=== PATIENT | female | born 1975 | race Caucasian/White ===

== ENCOUNTER 2017-01-20 09:59 | Emergency (ER) | payer OTHER ==
[~2017-01-20 09:59] MED LIST: AMOXIL500 MG PO; CIPRO500 MG PO; FLONASE120 SPRAY/ NAS; IBUPROFEN800 M1 PO; PERCOCET 325 MG1 TA2 PO; TESSALON PERLE100 MG PO
--- NOTE | 2017-01-20 11:43 | ED NECK/BACK PAIN COMPLAINT ---
History of Present Illness General Chief Complaint: Low Back Pain/Injury Stated Complaint: LOW BACK PAIN Source: patient Exam Limitations: no limitations Vital Signs & Intake/Output Vital Signs & Intake/Output Vital Signs Date Time Temp Pulse Resp B/P Pulse O2 O2 Flow FiO2 Ox Delivery Rate 01/20 1158 98.1 74 16 122/62 99 Room Air 01/20 1110 Room Air 01/20 1010 98.0 80 20 125/69 98 Room Air Allergies Uncoded Allergies: SEAFOOD (UNKNOWN 03/19/16) Reconcile Medications No Known Home Medications Triage Note: PT PRESENTS TO ER C/O OF PAIN TO COCCYX AREA. PT STATES SHE HAS RODS IN HER BACK DUE TO A ACCIDENT YEARS AGO. SHE SAID FRIDAY SHE WAS AT A BAR AND SAT ON A HARD SURFFACE AND THINKS THAT BOTHERED HER. PT STATES SINCE YESTERDAY HER TAILBONE HAS BEEN HURTING HER Triage Nurses Notes Reviewed? yes Onset: Gradual Duration: constant Timing: recent history Radiation: none Method of Injury: unknown : No Patient currently breastfeeds: No HPI: Patient is a 41-year-old female with past medical history of lumbar spine fusion who states on Friday 3 days ago patient was sitting at a bar stool for approximate 4 hours where she states at the time it was uncomfortable for her sacrum and tailbone region in which since she's been complaining of pain with certain positions while sitting. Patient states that she has no redness or swelling or skin irritation or discharge to the region. Denies any rectal pain. Denies any lumbar spine pain however does state that the pain is at the end of her coccyx regions. Denies any extremity weakness or paresthesia or pain. Patient has not taken any medications for symptoms. Past History Travel History Traveled to [place] past 21 day No Medical History Any Pertinent Medical History? see below for history Musculoskeletal: BACK INJURY 20 YEARS AGO Surgical History Surgical History: PATIENT STATED SURGERY FOR HER BACK AND RIGHT SHOULDER Psychosocial History What is your primary language Slovenian Tobacco Use: Quit >30 days ago Family History Hx Contributory? No Review of Systems Review of Systems Constitutional: Reports: no symptoms. Eyes: Reports: no symptoms. Ears, Nose, Throat, Mouth: Reports: no symptoms. Respiratory: Reports: no symptoms. Cardiovascular: Reports: no symptoms. Gastrointestinal/Abdominal: Reports: no symptoms. Musculoskeletal: Reports: see HPI, back pain. Skin: Reports: no symptoms. Neurological/Psychological: Reports: no symptoms. All Other Systems: Reviewed and Negative Physical Exam Physical Exam General Appearance: no apparent distress, alert, comfortable Neck: supple, full range of motion Comments: Well-developed well-nourished person in no acute distress HEENT: Normal EENT exam, Neck: Supple, no lymphadenopathy, normal range of motion without pain or tenderness Back: Lumbar spine-nontender full active range of motion normal inspection Coccyx sacral region normal inspection mild tenderness noted to coccyx region no swelling no ecchymosis no signs of trauma no erythema Abdomen: Soft, nontender nondistended, no appreciable organomegaly. Normal bowel sounds. No ascites Extremity: No edema, no calf tenderness to palpation, normal and equal pulses. Neuro: Alert oriented x3, motor sensory normal, Skin: No appreciable rash on exposed skin, skin is warm and dry. Psych: Mood and affect is normal, memory and judgment is normal. Progress Differential Diagnosis: AAA, carotid dissection, cauda equina syn, herniated disc, myofascial strain, pyelo/UTI, sciatica, spinal cord inj, thoracic outlet syn, T/L spine injury, ureterolithiasis Plan of Care: Due to history of present illness and exam findings patient is likely to have a coccyx contusion however no mechanism injury or traumatic event occurred in which no medical warranting of emergent x-rays for the patient is identified at this time. Patient has normal steady gait bilateral lower extremity's are neurovascularly intact. No signs or symptoms of hemorrhoids or abscess or cellulitis at this time or PILONIDAL cyst Departure Departure Disposition: HOME OR SELF CARE Condition: Stable Clinical Impression Primary Impression: Coccyx pain Referrals: PATIENT HAS NO PRIMARY CARE DR (PCP/Family) Additional Instructions: DISCUSSED BEGIN ICING THE AREA 20 MINUTES EVERY TWO HOURS BEGIN IBUPROFEN FOR PAIN IF NO BETTER IN ONE WEEK FOLLOW UP WITH YOUR DOCTOR IF SYMPTOMS WORSEN, RETURN TO THE ER. Departure Forms: Customer Survey General Discharge Information Prescriptions: Current Visit Scripts No Known Home Medications
[2017-01-20 11:58] VITALS: BP 122/62
== END 2017-01-20 11:59 ==
LOC: ERH 09:59
DX: M53.3 Sacrococcygeal disorders, not elsewhere classified (principal)

== ENCOUNTER 2017-01-23 21:19 | Emergency (ER) | payer OTHER ==
[~2017-01-23] VITALS: Ht 167.6 cm; Wt 99.8 kg
[2017-01-23 21:29] VITALS: BP 158/97
[2017-01-23] MEDS ORDERED: IBUPROFEN800 M1 PO (21:40)
--- NOTE | 2017-01-23 21:40 | ED THROAT/DENTAL COMPLAINT ---
History of Present Illness General Chief Complaint: Sore Throat, Dental Pain Stated Complaint: DENTAL PAIN Source: patient Exam Limitations: no limitations Vital Signs & Intake/Output Vital Signs & Intake/Output Vital Signs Date Time Temp Pulse Resp B/P Pulse O2 O2 Flow FiO2 Ox Delivery Rate 01/23 2129 97.7 74 18 158/97 99 Room Air Allergies Uncoded Allergies: SEAFOOD (UNKNOWN 03/19/16) Reconcile Medications Ibuprofen 800 MG TABLET 1 TAB PO TID pain Triage Note: PT TO ED C/O BLEEDING FROM TOOTH EXTRACTION SITE. TOOTH EXTRACED AT 1630 TODAY. CHU EDWARDS IN TO EVAL PT IN TRIAGE. MINIMAL BLEEDING IN TRIAGE. TOOK ABX AND PERCOCET NURSE TRANSITIONAL Triage Nurses Notes Reviewed? yes Onset: Abrupt Duration: hour(s):, constant, continues in ED Timing: single episode today Injury Environment: home Severity: severe No Modifying Factors: none : No Patient currently breastfeeds: No HPI: 41-year-old female comes into emergency room for further evaluation of right upper dental pain. Patient reports that she had a tooth extraction done this afternoon. Patient reports that she had a lot of bleeding before and the pain has been severe radiating up into her face. Patient was given a prescription for Percocet as well as antibiotics. Denies any other associated symptoms. (JERRY BEAVERS) Past History Travel History Traveled to [place] past 21 day No Medical History Any Pertinent Medical History? see below for history Musculoskeletal: BACK INJURY 20 YEARS AGO Surgical History Surgical History: PATIENT STATED SURGERY FOR HER BACK AND RIGHT SHOULDER Psychosocial History What is your primary language Hebrew Tobacco Use: Quit >30 days ago Family History Hx Contributory? No (JERRY BEAVERS) Review of Systems Review of Systems Constitutional: Reports: no symptoms. EENTM: Reports: see HPI. Respiratory: Reports: no symptoms. Cardiovascular: Reports: no symptoms. GI: Reports: no symptoms. Genitourinary: Reports: no symptoms. Musculoskeletal: Reports: no symptoms. Skin: Reports: no symptoms. Neurological/Psychological: Reports: no symptoms. Hematologic/Endocrine: Reports: no symptoms. Immunologic/Allergic: Reports: no symptoms. All Other Systems: Reviewed and Negative (JERRY BEAVERS) Physical Exam Physical Exam General Appearance: well developed/nourished, no apparent distress, alert Head: atraumatic, normal appearance Eyes: Bilateral: normal appearance. Ears: Bilateral: canal normal. Nose: normal inspection Mouth/Throat: TOOTH EXTRACTION RIGHT UPPER MOLAR, GAUZE REMOVED, THERE IS NO ACTIVE BLEEDING APPRECIATED, STITCHES ARE IN PLACE, NO ACUTE ABNORMALITIES, Neck: normal inspection Cardiovascular/Respiratory: normal breath sounds Back: normal range of motion Neurologic/Psych: awake, alert, oriented x 3 Skin: intact, normal color Core Measures ACS in differential dx? No Severe Sepsis Present: No Septic Shock Present: No (JERRY BEAVERS) Progress Differential Diagnosis: aspirated tooth, carious tooth, epiglottitis, Ludwigs angina, meningitis, odontogenic abscess, jong-tonsillar abscess, pharyngeal for. body, stomatitis/gingivitis, strep pharyngitis, tooth fracture Plan of Care: 01/23/2017 9:59:03 PM Patient has no active bleeding. Clinically looks well. Nontoxic-appearing. In no apparent distress. Follow-up with dentist tomorrow. (JERRY BEAVERS) Departure Departure Disposition: HOME OR SELF CARE Condition: Stable Clinical Impression Primary Impression: Status post tooth extraction Secondary Impressions: Pain, dental Referrals: PATIENT HAS NO PRIMARY CARE DR (PCP/Family) Additional Instructions: Take ibuprofen 800s as prescribed. Take the Percocet and antibiotics that were prescribed to ready. Continue to keep the gauze in place. Call your dentist tomorrow. Return if any other concerns. Please go over all results of today's visit with your primary care doctor. Contact your primary care doctor to let them know you were here in the emergency room. There may be nonspecific findings which may not be related to your visit today here in the emergency room but may require further evaluation and chronic monitoring by your primary care doctor. If you had a laceration today the chance of foreign body always remains. You should follow-up with your primary care doctor for recheck in 3-5 days for a wound check. If you had an x-ray done there is a chance that a fracture could have been missed on initial read and you should follow-up with your primary care doctor for repeat x-rays if symptoms persist. If your blood pressure was elevated here in the emergency room please have rechecked by her primary care doctor within the next 48 hours by your primary care doctor. If you were prescribed a narcotic here in the emergency room or any type of controlled substances you're not allowed to drive while taking this medication or operate any type of heavy machinery. Narcotics can make you feel lightheaded dizziness nausea and can cause constipation. You may need to spanish moss picker a stool softener. Thank you for choosing [facility] emergency room. Please return to the emergency room immediately if you have any other concerns worsening of symptoms. Departure Forms: Customer Survey General Discharge Information Prescriptions: Current Visit Scripts Ibuprofen 1 TAB PO TID #30 TAB (JERRY BEAVERS) PA/MUSIC PROMOTER Co-Sign Statement Statement: ED Attending supervision documentation- [] I saw and evaluated the patient. I have also reviewed all the pertinent lab results and diagnostic results. I agree with the findings and the plan of care as documented in the PA's/MUSIC PROMOTER's documentation. x I have reviewed the ED Record and agree with the PA's/MUSIC PROMOTER's documentation. [] Additions or exceptions (if any) to the PAs/MUSIC PROMOTER's note and plan are summarized below: [] (DARWIN SANTAMARIA,EBONY)
== END 2017-01-23 21:55 ==
LOC: ERH 21:19
DX: K08.89 Other specified disorders of teeth and supporting structures (principal)